=== PATIENT | male | born 1960 | race Caucasian/White ===

== ENCOUNTER 2020-06-02 16:06 | Emergency (ER) | payer BC, SELFPAY ==
[2020-06-02 16:08] VITALS: BP 130/89; PULSE 112; RESP 20; TEMP 38.3; O2SAT 98
--- NOTE | 2020-06-02 16:15 | ED.GENADULT ---
HPI - General Adult General Chief complaint: Upper Respiratory Infection Stated complaint: cough/fever Time Seen by Provider: 06/02/20 16:15 Source: patient Mode of arrival: ambulatory Limitations: no limitations History of Present Illness HPI narrative: 59-year-old male patient presents to the [facility] with complaints of cold symptoms that started yesterday. Patient states he has been having a stuffy runny nose, low-grade fever and just overall not feeling well. Patient does work at [employer] and states that there has been a couple employees that have been out for Covid but he is unsure if they tested positive or just had to quarantine. Patient was not considered a close contact of those workers. Patient denies getting her flu shot yet this year. Patient denies any chest pain, shortness of breath or coughing. Denies taking anything for his symptoms since they started. Related Data Home Medications Medication Instructions Recorded Confirmed amlodipine 10 mg DAILY 06/02/20 06/02/20 Allergies Allergy/AdvReac Type Severity Reaction Status Date / Time MEPERIDINE HCL Allergy Uncoded 06/29/19 14:56 Review of Systems Review of Systems: Narrative: CONSTITUTIONAL: Positive low-grade fever, positive body aches and chills, and sweats. EYES: Denies visual changes, redness, or discharge. ENT: Positive rhinorrhea, congestion, denies sore throat, or otalgia. CARDIOVASCULAR: Denies chest pain, palpitations, or edema. RESPIRATORY: Denies cough or dyspnea. GASTROINTESTINAL: Denies abdominal pain, nausea, vomiting, or diarrhea. GENITOURINARY: Denies dysuria or hematuria. SKIN: Denies rash or itching. MUSCULOSKELETAL: Denies back pain, joint pain, or myalgia. NEUROLOGIC: Positive headache, positive fatigue, denies numbness, or weakness. PSYCHIATRIC: Denies anxiety or depression. [facility] Past Medical History Medical History Diverticulitis Gout Hypercholesterolemia Hypertension Joint pain Family History Family History Father Cerebrovascular accident Mother Family history of diabetes mellitus in first degree relative Sibling Family history of diabetes mellitus in first degree relative Social History Social History Smoking status: Light tobacco smoker Smoking end date: 07/12/03 Alcohol intake: current Gender identity (if verbalized by the patient): Male Comments At the time of my signature I agree with nursing past medical history, surgical, social, and family history. There is no relevant family history pertinent to the presenting complaint. Exam Narrative: Exam Narrative: GENERAL: ill-appearing, well-nourished, and in no acute distress. HEAD: Normocephalic, atraumatic. No tenderness noted to frontal or maxillary sinuses on palpation EYES: PERRLA and EOMI. ENT: Nares with erythema and edema noted bilaterally, clear rhinorrhea, no epistaxis. Mucous membranes moist. Posterior pharynx with no erythema, tonsillar Solitario, exudates or lesions present. Bilateral TMs are clear with no erythema or foreign bodies in the canal. NECK: Supple. No lymphadenopathy CHEST: Clear to auscultation. No respiratory distress. HEART: Regular rate and rhythm. No murmur heard. Normal peripheral pulses. ABDOMEN: Soft, nontender, nondistended, normal active bowel sounds. EXTREMITIES: Normal range of motion. No edema. SKIN: Warm, dry, no rash. NEURO: No focal deficits. Alert and oriented x3. Course Reevaluation(s) Reevaluation #1: Reevaluated patient after the strep and flu had resulted. Notified him that he is negative today for strep and flu. Discussed with him that I think that we should send him for Covid testing. Patient agrees with this. Discussed with him I will send over an order to [facility] for COVID-19 testing. Discussed with him that they will conta
== END 2020-06-02 16:30 | disposition home or self-care (01) ==
PROVIDERS: Emergency Provider Nurse Practitioner Family
DX: J06.9 Acute upper respiratory infection, unspecified (principal); Z20.828 Contact with and (suspected) exposure to other viral communicable diseases; F17.200 Nicotine dependence, unspecified, uncomplicated; M10.9 Gout, unspecified; E78.00 Pure hypercholesterolemia, unspecified; I10 Essential (primary) hypertension
CPT/HCPCS: 87081; 87804; 87880; 99213; G0463

== ENCOUNTER 2020-06-03 06:55 | Outpatient (NON) | payer BC, SELFPAY ==
[2020-06-04 01:19] LABS: SARS-CoV-2 RNA PCR Positive
== END 2020-06-03 06:56 ==
LOC: ANHCOVIDDT 07:14
PROVIDERS: Visit Provider Nurse Practitioner Family
DX: U07.1 COVID-19 (principal)
CPT/HCPCS: 87635; C9803; U0003

== ENCOUNTER 2020-06-12 17:23 | Emergency (ER) | payer BC, SELFPAY ==
--- NOTE | ~2020-06-12 | XR_ITS ---
EXAMINATION: XR chest 1V portable DATE: 06/12/2020 18:08 INDICATION: Recent COVID presenting with cough, fever, chills and shortness of breath. TECHNIQUE: frontal view of the chest was obtained. COMPARISON: Chest radiograph dated 01/28/2013 FINDINGS: Subtle patchy opacities in the right mid and bilateral lower lung zones. No pleural effusion or pneum othorax. The cardiomediastinal silhouette is within normal limits for AP technique. IMPRESSION: 1. Mild patchy opacities in the right mid and bilateral lower lung zones which could represent ammoni a, atelectasis or less likely pulmonary edema. Reviewed, dictated and finalized at location A. HIKER IMPRESSION: 1. Mild patchy opacities in the right mid and bilateral lower lung zones which could represent ammonia, atelectasis or less likely pulmonary edema.
[2020-06-12 17:55] VITALS: BP 175/99; PULSE 101; RESP 22; TEMP 36.9; O2SAT 98
--- NOTE | 2020-06-12 18:12 | ED.GENADULT ---
HPI - General Adult General Chief complaint: Shortness of Breath/Dyspnea Stated complaint: SOB Time Seen by Provider: 06/12/20 17:26 Source: patient History of Present Illness HPI narrative: Patient is a 59 y/o male complaining of moderate generalized weakness and cough for 2 weeks. He states that he had COVID test on 06/02/20 and it came back positive the next day. He had been quarantined for 10 days and just went back to work yesterday. He felt weak and fatigued and had to go back home. He has no chest pain or SOB at this time. Related Data Home Medications Medication Instructions Recorded Confirmed amlodipine 10 mg DAILY 06/02/20 06/02/20 Allergies Allergy/AdvReac Type Severity Reaction Status Date / Time meperidine Allergy Verified 06/12/20 17:52 Review of Systems Constitutional: Constitutional: Denies chills, Reports fever(s), Denies headache(s) and Reports weakness Eyes: Eyes: Denies blurry vision ENT: Denies headache(s) and Denies neck pain Cardiovascular: Cardiovascular: Denies chest pain and Denies dyspnea Respiratory: Respiratory: Reports cough and Denies dyspnea Gastrointestinal: Gastrointestinal: Denies abdominal pain, Denies diarrhea, Denies nausea and Denies vomiting Genitourinary: Genitourinary: Denies hematuria and Denies dysuria Musculoskeletal: Musculoskeletal: Denies back pain and Denies neck pain Neurologic: Denies headache(s) and Reports weakness PMFSH Past Medical History Medical History Diverticulitis Gout Hypercholesterolemia Hypertension Joint pain Family History Family History Father Cerebrovascular accident Mother Family history of diabetes mellitus in first degree relative Sibling Family history of diabetes mellitus in first degree relative Social History Social History Smoking status: Light tobacco smoker Smoking end date: 07/12/03 Alcohol intake: current Gender identity (if verbalized by the patient): Male Exam Const: General: no acute distress and well developed Orientation/consciousness: oriented to person, oriented to place, oriented to time and patient oriented x3 HENMT: Head: normocephalic Ears: external ears normal General nose exam: Normal external nose present Eyes: General: appearance normal, both eyes and all related structures Conjunctivae: conjunctivae normal Neck: Neck: normal visual inspection and full ROM Chest: Chest palpation & inspection: normal inspection of the chest and no tenderness Resp: Effort & Inspection: normal respiratory effort and able to speak in complete sentences Cardio: Rate: regular rate Rhythm: regular rhythm GI: GI Palp: No abdominal tenderness and Yes Soft to palpation Skin: General skin exam: normal color and turgor normal Neuro: General: oriented to person, oriented to place, oriented to time and patient oriented x3 Cognition (Neuro): normal cognition Extrem: General: normal to inspection, full ROM and no pedal edema Psych: Appearance: grossly normal Mental Status: mental status grossly normal Affect: normal affect Course Vital Signs Vital signs: Vital Signs Temperature 36.9 C 06/12/20 17:55 Pulse Rate 101 H 06/12/20 17:55 Respiratory Rate 22 H 06/12/20 17:55 Blood Pressure 175/99 H 06/12/20 17:55 Pulse Oximetry 98 06/12/20 17:55 Temperature 36.9 C 06/12/20 17:55 Pulse Rate 74 06/12/20 19:01 Respiratory Rate 16 06/12/20 19:01 Blood Pressure 175/99 H 06/12/20 17:55 Pulse Oximetry 97 06/12/20 19:01 Medical Decision Making Vital Signs Vital Signs: Vital Signs Temperature 36.9 C 06/12/20 17:55 Pulse Rate 101 H 06/12/20 17:55 Respiratory Rate 22 H 06/12/20 17:55 Blood Pressure 175/99 H 06/12/20 17:55 Pulse Oximetry 98 06/12/20 17:55 Temperature 36.9 C 06/12/20 17:55 Pulse
[2020-06-12 18:32] VITALS: PULSE 101
[2020-06-12 18:36] VITALS: O2SAT 98
[2020-06-12 18:37] LABS: Basophils Percent Auto 0.2 % (0.2-1.2); Eosinophils Percent Auto 0.5 % (0-4.4); Hematocrit 40.7 % (42.0-52.0); Hemoglobin 13.7 g/dL (14.0-18.0); Immature Granulocyte Absolute 0.03 K/mm3 (0.00-0.031); Immature Granulocyte Percent A 0.5 % (0-0.5); Lymphocytes Percent Auto 22.6 % (18.3-44.2); Mean Corpuscular HGB Conc 33.7 g/dl (32-36); Mean Corpuscular Hemoglobin 30.9 pg (26-34); Mean Corpuscular Volume 91.9 fl (80-100); Mean Platelet Volume 11.4 fl (7.4-10.4); Monocytes Absolute Auto 0.7 K/mm3 (0.1-0.6); Monocytes Percent Auto 11.8 % (2.6-8.5); Neutrophils Percent Auto 64.4 % (45.5-73.1); Platelet Count Result 176 k/mm3 (150-375); Red Blood Count 4.43 M/mm3 (4.6-6.20); Red Cell Distribution Width 12.8 % (11.5-14.5); White Blood Count 6.2 K/mm3 (4.5-10.0)
--- NOTE | 2020-06-12 18:42 | PC.NURSE ---
patient brought to ED room 11 via EMS. see triage notes. has SL in left hand per EMS. [employer]. patient with hx of HTN and DM. denies other medical conditions. placed on athletic monitor. on droplet precautions. call light in reach. waiting for further orders from provider. patient aware.
[2020-06-12] MEDS: SODIUM CHLORIDE 0.9% IV 1,000 ML 999 ML IV CONT (18:45)
[2020-06-12 18:49] LABS: Alanine Aminotransferase 41 U/L (4-50); Alkaline Phosphatase 66 U/L (38-126); Anion Gap 6 mmol/L (8-16); Aspartate Amino Transferase 38 U/L (17-59); Bilirubin,Total 0.2 mg/dL (0.2-1.3); Blood Urea Nitrogen 16 mg/dL (9-20); Calcium 9.2 mg/dL (8.4-10.2); Carbon Dioxide 29 mmol/L (22-30); Chloride 108 mmol/L (98-107); Estimated Glomerular Filt Rate > 60; Glucose 109 mg/dL (75-110); Potassium 4.1 mmol/L (3.4-5.0); Sodium 143 mmol/L (137-145)
[2020-06-12 19:01] VITALS: PULSE 74; RESP 16; O2SAT 97
== END 2020-06-12 21:10 | disposition home or self-care (01) ==
PROVIDERS: Emergency Provider Emergency Medicine; PCP Internal Medicine
DX: U07.1 COVID-19 (principal); J12.89 Other viral pneumonia; F17.210 Nicotine dependence, cigarettes, uncomplicated; I10 Essential (primary) hypertension; E78.5 Hyperlipidemia, unspecified; M10.9 Gout, unspecified
CPT/HCPCS: 36415; 71045; 80053; 85025; 96360; 99283; J7030

== ENCOUNTER 2020-06-28 14:54 | Outpatient (CLI) | payer BC, SELFPAY ==
--- NOTE | ~2020-06-28 | CT_ITS ---
EXAMINATION: CT lung screening EXAM DATE: 06/28/2020 15:16 INDICATION: Personal history of nicotine dependence. TECHNIQUE: Spiral low dose CT of the chest without contrast. Axial, coronal and sagittal images were reviewed. The dose-length product (DLP) for this examination was 365.36 mGy-cm. The exposure was t ailored according to patient size (auto mA exposure control), and iterative reconstruction (ASIR) was used as additional dose reduction technique. There is no prior study for comparison. FINDINGS: Multiple peripheral small scattered regions of solid density, appearance most consistent w ith late stage or resolving COVID 19 given distribution and community prevalence. No groundglass opac ities as seen with acute COVID infection. No definite opacities with different appearance from these opacities, but difficult to exclude that and six-month follow-up low-dose chest CT is recommended. Tracheobronchial tree is patent. There is no mediastinal, hilar or axillary lymphadenopathy. Ther e are no pleural or pericardial effusions. There is no pneumothorax. Heart normal in size. No e vidence of coronary arterial calcification. Some scattered transverse colonic diverticula. There is thoracic spondylosis without osteoblastic or osteolytic lesions identified. IMPRESSION: Lung-RADS category 3, probably benign (1-2% chance of malignancy); recommend followup LDC T in 6 months. > Reviewed, dictated and finalized at location A. SUPERINTENDENT IMPRESSION: Lung-RADS category 3, probably benign (1-2% chance of malignancy); recommend followup LDCT in 6 months. >
== END 2020-06-28 14:55 | disposition home or self-care (01) ==
LOC: ANHIMG 14:57
PROVIDERS: PCP Internal Medicine; Visit Provider Nurse Practitioner
DX: Z12.2 Encounter for screening for malignant neoplasm of respiratory organs (principal); Z87.891 Personal history of nicotine dependence; R91.8 Other nonspecific abnormal finding of lung field
CPT/HCPCS: G0297

== ENCOUNTER 2021-01-15 08:16 | Outpatient (CLI) | payer BC, SELFPAY ==
--- NOTE | ~2021-01-15 | CT_ITS ---
EXAMINATION: CT diagnostic chest wo con EXAM DATE: 01/15/2021 08:38 INDICATION: R91.1 - Solitary pulmonary nodule. TECHNIQUE: Spiral CT of the chest without contrast. Axial, coronal and sagittal images of the chest were reviewed. Coronal maximum intensity pixel images of chest reviewed. The dose-length product ( DLP) for this examination was 378.92 mGy-cm. The exposure was tailored according to patient size (au to mA exposure control), and iterative reconstruction (ASIR) was used as additional dose reduction te chnique. Comparison is made to prior examination from 06/28/2020. FINDINGS: There is mild emphysema. Previous exam had multiple scattered peripheral predominant lung opacities, subacute COVID pneumonia. There is a 3 mm left lower lobe nodule on image 55 and another i n the right lower lobe on image 78. Several other similar sized for smaller pulmonary nodules identif ied. No suspicious opacities. There are no pleural or pericardial effusions. Tracheobronchial tree is patent. There is no media stinal, hilar or axillary lymphadenopathy. There is no pneumothorax. Heart normal in size. No e vidence of coronary arterial calcification. Upper abdomen is unremarkable. No osteoblastic or oste olytic lesions identified. IMPRESSION: 1. Several tiny nodules likely postinfectious. Consider continuing with screening LDCT in one year i f patient still eligible. 2. Mild emphysema. Reviewed, dictated and finalized at location B. IMPRESSION: 1. Several tiny nodules likely postinfectious. Consider continuing with screen ing LDCT in one year if patient still eligible. 2. Mild emphysema.
== END 2021-01-15 08:17 | disposition home or self-care (01) ==
PROVIDERS: PCP Internal Medicine; Visit Provider Clinical Nurse Specialist
DX: R91.1 Solitary pulmonary nodule (principal); R91.8 Other nonspecific abnormal finding of lung field; J43.9 Emphysema, unspecified
CPT/HCPCS: 71250

== ENCOUNTER 2021-10-29 00:41 | Day surgery (SDC) | payer BC, SELFPAY ==
[2021-10-17 11:40] VITALS: BMI 37.4
[2021-10-29 06:57] VITALS: BP 146/94; PULSE 83; RESP 18; TEMP 36.8; O2SAT 99; BMI 36.9
[2021-10-29] MEDS: LACTATED RINGERS 1,000 ML 150 ML IV CONT (07:06)
--- NOTE | 2021-10-29 07:18 | P.PNAN_ITS ---
Anes - Initial Pre Proc Eval Procedure: Operation Date: 10/29/21 08:00 Proposed Procedures p Screening Colonoscopy - Gm Schofield MD Date/Time: 10/29/21 07:18 Surgeon: Gm Schofield MD Pre Op Diagnosis: neoplasm screening Patient Data Age: 61 Gender: M Height: 1.91 m Weight: 134.2 kg Last Vital Signs Temp 36.8 C 10/29/21 06:57 Pulse 83 10/29/21 06:57 Resp 18 10/29/21 06:57 BP 146/94 H 10/29/21 06:57 Pulse Ox 99 10/29/21 06:57 Allergies Allergy/AdvReac Type Severity Reaction Status Date / Time meperidine AdvReac Pass out Verified 10/29/21 06:56 Home Medications Medication Instructions Recorded Confirmed Type omega-3 fatty acids 1,000 mg 1,000 mg PO DAILY 11/27/20 10/29/21 History capsule amlodipine 10 mg tablet 10 mg PO DAILY #90 tablet 09/10/21 10/29/21 Rx Patient hx anesthesia problems: none Family hx anesthesia problems: none Results Review: All pre-operative results and documents have been reviewed as part of the pre-operative evaluation. [facility] Past Medical History Medical History Diverticulitis Gout Hypercholesterolemia Hypertension Joint pain Smoker Family History Family History Father Cerebrovascular accident Mother Family history of diabetes mellitus in first degree relative Sibling Family history of diabetes mellitus in first degree relative Social History Social History (Updated 09/10/21 @ 14:17 by Nereida Nieto [facility]) Smoking packs per day: 1 Smoking cigarettes per day: 20.0 Years smoked: 30 Smoking pack-years: 30.00 Smoking status: Former smoker Tobacco type: cigarettes Smoking end date: 11/09/20 Alcohol intake: current Drinks per week: 12 Alcohol use details: 18 pack of beer on the weekends Substance use type: does not use Living arrangements: alone Gender identity (if verbalized by the patient): Male Spiritual care concerns: No Anes - Eval Final PreProcedure Day of Procedure 10/29/21 07:18 Patient weight: obese Heart: regular rate and rhythm Lungs: clear to auscultation and normal air movement Airway: Mallampati scale class II Neurological: alert and oriented Last oral intake: >/= 8 hours ASA classification: III Emergent: no Anesthetic plan: proceed Anesthesia type and monitoring: general GIVS Results Review: All pre-operative results and documents have been reviewed as part of the pre-operative evaluation. Informed Consent: The patient's anesthetic plan and its attendant risks and benefits were discussed with the patient/family/POA. Questions were solicited and answers provided to the satisfaction of the patient/family/POA.
--- NOTE | 2021-10-29 07:46 | PM.HPGS ---
History of Present Illness History of Present Illness Consent: Risks, benefits, and alternatives have been discussed and questions answered. Patient agrees to proceed with procedure. Chief complaint: neoplasm screening Narrative: Shan Rowe Jr. is a 61 year old male here for screening colonoscopy, last one 2010 Review of Systems Constitutional: Constitutional: Denies headache(s) and Denies weakness Eyes: Eyes: Denies blurry vision ENT: Reports Normal hearing present, Denies headache(s) and Denies neck pain Cardiovascular: Cardiovascular: Denies chest pain and Denies dyspnea Respiratory: Respiratory: Denies dyspnea Gastrointestinal: Gastrointestinal: Reports no additional gastrointestinal complaints Genitourinary: Genitourinary: Denies dysuria Musculoskeletal: Musculoskeletal: Denies neck pain Integumentary/Breasts: Skin/Breast: Denies dry skin Neurologic: Reports Normal hearing present, Denies headache(s) and Denies weakness Psychiatric: Psychiatric: Denies anxiety Endocrine: Endocrine: Denies change in body appearance Hematologic/Lymphatic: Hematologic/Lymphatic: Denies easy bleeding Allergic/Immunologic: Allergic/Immunologic: Denies urticaria PMFSH Past Medical History Medical History Diverticulitis Gout Hypercholesterolemia Hypertension Joint pain Smoker Family History Family History (Reviewed 09/10/21 @ 14:17 by Nereida Nieto [facility]) Father Cerebrovascular accident Mother Family history of diabetes mellitus in first degree relative Sibling Family history of diabetes mellitus in first degree relative Social History Social History (Updated 09/10/21 @ 14:17 by Nereida Nieto [facility]) Smoking packs per day: 1 Smoking cigarettes per day: 20.0 Years smoked: 30 Smoking pack-years: 30.00 Smoking status: Former smoker Tobacco type: cigarettes Smoking end date: 11/09/20 Alcohol intake: current Drinks per week: 12 Alcohol use details: 18 pack of beer on the weekends Substance use type: does not use Living arrangements: alone Gender identity (if verbalized by the patient): Male Spiritual care concerns: No Meds Home Medications and Allergies Home Medications Medication Instructions Recorded Confirmed Type omega-3 fatty acids 1,000 mg 1,000 mg PO DAILY 11/27/20 10/29/21 History capsule amlodipine 10 mg tablet 10 mg PO DAILY #90 tablet 09/10/21 10/29/21 Rx Allergies Allergy/AdvReac Type Severity Reaction Status Date / Time meperidine AdvReac Pass out Verified 10/29/21 06:56 Vital Signs Vital Signs - 24 hr 10/29/21 06:57 Temperature 98.2 F Pulse Rate 83 Respiratory Rate 18 Blood Pressure 146/94 H Pulse Oximetry 99 Exam Const: General: comfortable and no acute distress HENMT: General nose exam: Normal nares present Eyes: General: appearance normal, both eyes and all related structures Neck: Neck: no JVD Resp: Auscultation: clear to auscultation bilaterally Cardio: Rate: regular rate Rhythm: regular rhythm GI: Inspection: non-distended GI Palp: Yes Soft to palpation Skin: General skin exam: normal color Neuro: General: gait normal Speech: normal speech Extrem: General: normal to inspection Psych: Mental Status: mental status grossly normal Assessment and Plan Assessment and plan (1) Screening for colon cancer: Code(s): Z12.11 - Encounter for screening for malignant neoplasm of colon Status: Acute Assessment and Plan: colonoscopy
[2021-10-29 08:06] VITALS: BP 113/73; PULSE 60; RESP 18; O2SAT 95
[2021-10-29 08:16] VITALS: BP 120/76; PULSE 59; RESP 16; O2SAT 100
[2021-10-29 08:26] VITALS: BP 128/82; PULSE 54; RESP 19; O2SAT 100
== END 2021-10-29 08:31 | disposition home or self-care (01) ==
PROVIDERS: PCP Internal Medicine; Visit Provider Internal Medicine Gastroenterology
PROC: 0DJD8ZZ Inspection of Lower Intestinal Tract, Via Natural or Artificial Opening Endoscopic (ICD-10-PCS; CPT 45378; principal; 2021-10-29 08:00)
DX: Z12.11 Encounter for screening for malignant neoplasm of colon (principal); D12.2 Benign neoplasm of ascending colon; D12.3 Benign neoplasm of transverse colon; K57.30 Diverticulosis of large intestine without perforation or abscess without bleeding; I10 Essential (primary) hypertension; E78.00 Pure hypercholesterolemia, unspecified; M10.9 Gout, unspecified; Z87.891 Personal history of nicotine dependence; E66.9 Obesity, unspecified; Z68.37 Body mass index [BMI] 37.0-37.9, adult
CPT/HCPCS: 45385; 88305; J2704; J7120

== ENCOUNTER 2022-02-08 09:53 | Outpatient (CLI) | payer BC, SELFPAY ==
--- NOTE | ~2022-02-08 | CT_ITS ---
EXAMINATION:CT lung screening DATE: 02/08/2022 10:19 INDICATION: Tobacco use. TECHNIQUE: Computed tomography (CT) of the chest was performed without intravenous contrast. Automate d exposure control and iterative reconstruction technique were employed. The dose-length product (DLP ) was 434.44 mGy-cm. COMPARISON: Chest CT 01/15/2021 FINDINGS: There is mild emphysema. Again seen are a few nodules scattered in the lungs measuring up t o 5 mm in right lower lobe. No pleural effusion. The heart size is normal. No pericardial effusion. T here is diffuse hepatic steatosis. There is moderate thoracic spondylosis. IMPRESSION: 1. Lung-RADS category 2: Benign appearance or behavior. Continue annual screening with noncontrast lo w-dose chest CT in 12 months. Reviewed, dictated and finalized at location A. IMPRESSION: 1. Lung-RADS category 2: Benign appearance or behavior. Continue annual screeni ng with noncontrast low-dose chest CT in 12 months.
== END 2022-02-08 09:54 | disposition home or self-care (01) ==
PROVIDERS: PCP Internal Medicine; Visit Provider Clinical Nurse Specialist
DX: Z12.2 Encounter for screening for malignant neoplasm of respiratory organs (principal); Z87.891 Personal history of nicotine dependence
CPT/HCPCS: 71271

== ENCOUNTER 2025-01-31 07:51 | Outpatient (CLI) | payer MEDICARE, SELFPAY ==
--- NOTE | ~2025-01-31 | CT_ITS ---
EXAMINATION: CT lung screening DATE: 01/31/2025 08:03 INDICATION: Z87.891 - Personal history of nicotine dependence TECHNIQUE: Computed tomography (CT) of the chest was performed without intravenous contrast. Addition al 3D reconstructions utilizing coronal maximum intensity projection (MIP) were performed. Automated exposure control and iterative reconstruction technique were employed. The dose-length product was 44 3.55 mGy-cm. COMPARISON: 02/08/2022 FINDINGS: There is a new subsolid nodule with groundglass opacity with mean diameter of 506 mm and 2 mm solid c omponent in the right upper lobe. There are multiple unchanged scattered small solid nodules in both lungs, the largest in the right lower lobe measuring 6 x 3 mm in the remainder all measuring <4 mm. N o pulmonary edema or pleural effusion. Heart size is normal. Small amount of atherosclerotic coronary artery calcification. No pericardial effusion. Thoracic aorta is normal in caliber. No pathologicall y enlarged thoracic lymphadenopathy. Mild diffuse hepatic steatosis. Moderate to severe thoracic spon dylosis with metoprolol predominance. IMPRESSION: 1. . Lung-RADS category 3: Probably benign. Further evaluation is recommended with noncontrast low-do se chest CT in 6 months. Reviewed, dictated and finalized at location A. IMPRESSION: 1. . Lung-RADS category 3: Probably benign. Further evaluation is recommended w ith noncontrast low-dose chest CT in 6 months.
== END 2025-01-31 07:52 | disposition home or self-care (01) ==
PROVIDERS: PCP Nurse Practitioner; Visit Provider Nurse Practitioner
DX: Z12.2 Encounter for screening for malignant neoplasm of respiratory organs (principal); Z87.891 Personal history of nicotine dependence; R91.8 Other nonspecific abnormal finding of lung field
CPT/HCPCS: 71271